=== PATIENT | male | born 1945 | race Caucasian/White ===

== ENCOUNTER 2021-10-26 05:41 | Day surgery (SDC) | payer BC ==
[2021-10-21 09:36] LABS: BASOPHILS % (AUTO) 0.8 % (0-1); EOSINOPHILS # (AUTO) 0.1 X10'3 (0-0.9); EOSINOPHILS % (AUTO) 2.7 % (0-6); LYMPHOCYTES # (AUTO) 1.2 X10'3 (1.1-4.8); LYMPHOCYTES % (AUTO) 21.7 % (21-51); MEAN CORPUSCULAR HGB CONC 33.6 g/dL (33.0-36.5); MEAN CORPUSCULAR VOLUME 89.5 FL (78-98); MEAN PLATELET VOLUME 7.7 FL (7.4-10.4); MONOCYTES # (AUTO) 0.6 X10'3 (0-0.9); MONOCYTES % (AUTO) 11.9 % (2-12); NEUTROPHILS # (AUTO) 3.3 X10'3 (1.8-7.7); NEUTROPHILS % (AUTO) 62.9 % (42-75); PRE OP HEMATOCRIT 42.5 % (42.0-52.0); PRE OP HEMOGLOBIN 14.3 g/dL (14.0-17.9); PRE OP PLATELET COUNT 172 X10'3 (140-440); RED BLOOD COUNT 4.74 X10'6 (4.70-6.10); RED CELL DISTRIBUTION WIDTH 15.3 % (11.5-14.5)
[2021-10-21 10:00] LABS: ALBUMIN/GLOBULIN RATIO 1.1 (1.1-1.5); ALKALINE PHOSPHATASE 54 IU/L (46-116); BLOOD UREA NITROGEN 17 MG/DL (7-18); CALCIUM 8.8 MG/DL (8.5-10.1); CHLORIDE 101 MMOL/L (99-107); CREATININE 1.13 MG/DL (0.60-1.10); PRE OP ALT 18 U/L (30-65); PRE OP ANION GAP 10 (8-16); PRE OP AST 15 U/L (10-37); PRE OP BILIRUB, TOTAL 0.4 MG/DL (0.0-1.0); PRE OP GLUCOSE 134 MG/DL (70-104); PRE OP POTASSIUM 4.4 MMOL/L (3.4-5.1); PRE OP SODIUM 138 MMOL/L (135-145); TOTAL CARBON DIOXIDE 26.8 MMOL/L (24-32); TOTAL PROTEIN 7.7 G/DL (6.4-8.2); eGFR 63 ML/MIN
[2021-10-26] VITALS (11 sets, daily range): BP systolic 132–174; BP diastolic 72–103
[~2021-10-26] VITALS: Ht 172.7 cm; Wt 87.0 kg
[~2021-10-26 05:41] MED LIST: ATOR40TA72 PO; CELE-85 PO; ESCI-8 PO; FLO0.4C PO; HYDR-3972 PO; LOSA25TA41 PO; METF-438 PO; PANT40TA54 PO; PIOG45TA64 PO; ceFAZolin inj. 2,000 MG in dextrose 5%-water 100 ML IV ONE; famotidine 20mg tablet PO ONE; ringers solution, lacted 1,000 ML IV SCH
[2021-10-26] MEDS ORDERED: LIDOcaine 1% (10mg/ml) 2ml vial ONE (06:00)
[2021-10-26] MEDS ORDERED: BUPIVAcaine/PF 2.5 mg/ml (0.25%) 30ml vial ONE (06:44)
[2021-10-26] MEDS ORDERED: LIDOcaine 1% 30ml preserv. free vial ONE (06:44)
[2021-10-26] MEDS ORDERED: propofol inj 20 ML IV ONE (07:17)
[2021-10-26] MEDS ORDERED: ondansetron/PF 4mg/2ml inj ONE (07:17)
[2021-10-26] MEDS ORDERED: LIDOcaine 1%/PF 5ML 10 MG/ML VIAL ONE (07:17)
[2021-10-26] MEDS ORDERED: neostigmine methylsulfate 1 MG/ML 10ml vial ONE (07:17)
[2021-10-26] MEDS ORDERED: glycopyrrolate 0.2mg/ml inj ONE (07:17)
[2021-10-26] MEDS ORDERED: rocuronium 10mg/ml inj IV ONE ×2 (07:17→08:47)
[2021-10-26] MEDS ORDERED: fentaNYL/PF 50MCG/1 ML 2ML syringe ONE ×2 (07:19)
[2021-10-26] MEDS ORDERED: midazolam 1 mg/ML 2ml injection ONE (07:19)
[2021-10-26] MEDS ORDERED: hydrALAZINE 20mg/ml inj. IV PRN (07:25)
[2021-10-26] MEDS ORDERED: ringers solution, lacted 1,000 ML IV SCH (07:25)
[2021-10-26] MEDS ORDERED: fentaNYL/PF 50MCG/1 ML 2ML syringe IV PRN (07:25)
[2021-10-26] MEDS ORDERED: morphine 4 MG/ML inj SYRINge IV PRN (07:25)
[2021-10-26] MEDS ORDERED: morphine 2 MG/ML inj. syringe IV PRN (07:25)
[2021-10-26] MEDS ORDERED: ondansetron/PF 4mg/2ml inj IV PRN (07:25)
[2021-10-26] MEDS ORDERED: labetalol 20mg/4ml (5mg/ml) syringe IV PRN (07:25)
[2021-10-26] MEDS ORDERED: labetalol 20mg/4ml (5mg/ml) syringe IV ONE (07:43)
[2021-10-26] MEDS ORDERED: sevoflurane 250ml liquid IH ONE (07:43)
--- NOTE | 2021-10-26 09:25 | NUR ---
Received from OR via , accompanied by Anesthesiologist DR STEVENS and report given by Anesthesiolgist. PT MOANING WITH PAIN, FENTANLY GIVE, MOVING EXT X 4, SKIN WARM AND PINK, PIV RIGHT HAND 20G WITH LR 100ML/HR, 3 BA'S ON ABD, VSS
[2021-10-26] MEDS: fentaNYL/PF 50MCG/1 ML 2ML syringe IV PRN ×2 (09:29→09:42)
[2021-10-26] MEDS ORDERED: oxyCODONE/APAP 5-325mg tablet PO PRN (09:40)
--- NOTE | 2021-10-26 10:40 | NUR ---
Report called to receiving nurse. Belongings [WEARING GLASSES. GALLARDO'S WITH ]. PT HAS VOIDED 400MLS CLEAR YELLOW URINE, BLADDER SCANNED PT DUE TO FEELING LIKE HE STILL HAD TO VOID AND HISTORY OF BPH. BLADDER SCAN WAS 20MLS, VSS, BA'S CD, IV REMOVED, PT MEETS DISCHARGE CRITERA. TOOK PATIENT TO CAR VIA W/C. PT STATED THANK YOU AND THAT ALL THE STAFF WAS SO SWEET TO HIM.
== END 2021-10-26 11:40 | disposition home or self-care (01) ==
LOC: PAS 05:41
PROVIDERS: ATTEND Surgery
DX: K40.20 Bilateral inguinal hernia, without obstruction or gangrene, not specified as recurrent (principal); I10 Essential (primary) hypertension; Z88.2 Allergy status to sulfonamides; F32.9 Major depressive disorder, single episode, unspecified; K21.9 Gastro-esophageal reflux disease without esophagitis; Z79.899 Other long term (current) drug therapy; Z98.890 Other specified postprocedural states; Z87.891 Personal history of nicotine dependence; Z85.828 Personal history of other malignant neoplasm of skin; K66.0 Peritoneal adhesions (postprocedural) (postinfection); G89.29 Other chronic pain; Z88.8 Allergy status to other drugs, medicaments and biological substances
CPT/HCPCS: 36415; 49650; 80053; 82948; 85025; 87811; C1781; J0690; J2250; J2270; J2405; J2704; J2710; J3010; J3490; J7030; J7060; J7120; Z7506; Z7508; Z7512; A4215; A4618

== ENCOUNTER 2024-02-12 11:07 | Day surgery (SDC) | payer BC ==
[2024-02-07 11:42] LABS: BASOPHILS % (AUTO) 0.4 % (0-1); EOSINOPHILS # (AUTO) 0.1 X10'3 (0-0.9); EOSINOPHILS % (AUTO) 1.1 % (0-6); HEMOGLOBIN 13.9 g/dl (14.0-17.9); LYMPHOCYTES # (AUTO) 1.1 X10'3 (1.1-4.8); MEAN CORPUSCULAR HGB CONC 33.2 g/dL (33.0-36.5); MEAN CORPUSCULAR VOLUME 90.4 FL (78-98); MEAN PLATELET VOLUME 8.2 FL (7.4-10.4); MONOCYTES % (AUTO) 14.5 % (2-12); NEUTROPHILS # (AUTO) 4.4 X10'3 (1.8-7.7); PLATELET COUNT 193 X10'3 (140-440); RED BLOOD COUNT 4.65 X10'6 (4.70-6.10); RED CELL DISTRIBUTION WIDTH 15.2 % (11.5-14.5); WHITE BLOOD COUNT 6.6 X10'3 (4.5-11.0)
[2024-02-07 11:55] LABS: APTT 29 SECONDS (22-32); PROTHROMBIN TIME 10.9 SECONDS (9.0-12.0)
[2024-02-07 12:00] LABS: ALBUMIN 3.8 G/DL (3.4-5.0); ANION GAP 11 (8-16); BLOOD UREA NITROGEN 22 MG/DL (7-18); BUN/CREATININE RATIO 21.6 (10.0-20.0); CALCIUM 9.5 MG/DL (8.5-10.1); CHLORIDE 104 MMOL/L (99-107); CHOL/HDL RATIO 2.1 (0.00-4.99); CHOLESTEROL 107 MG/DL (0-200); CREATININE 1.02 MG/DL (0.60-1.10); GLUCOSE 137 MG/DL (70-104); HDL CHOLESTEROL 52 MG/DL (35-60); LDL CHOLESTEROL 44 MG/DL (50-100); POTASSIUM 4.2 MMOL/L (3.5-5.1); SODIUM 140 MMOL/L (135-145); TOTAL CARBON DIOXIDE 25.3 MMOL/L (24-32); TRIGLYCERIDES 65 MG/DL (20-135); eGFR 70 ML/MIN
[2024-02-12] VITALS (8 sets, daily range): BP systolic 106–135; BP diastolic 69–81; PULSE 76–87; RESP 16; TEMP 98.1; O2SAT 97–99
[~2024-02-12] VITALS: Ht 172.7 cm; Wt 85.5 kg
[~2024-02-12 11:07] MED LIST changes: +CELE-127 PO; -CELE-85 PO; -ceFAZolin inj. 2,000 MG in dextrose 5%-water 100 ML IV ONE; -famotidine 20mg tablet PO ONE; -ringers solution, lacted 1,000 ML IV SCH
[2024-02-12] MEDS ORDERED: ALBU10.7 IJ (12:42)
[2024-02-12] MEDS ORDERED: OMEG100037 PO (12:42)
[2024-02-12] MEDS ORDERED: AMLO5TAB16 PO (12:42)
[2024-02-12] MEDS: diphenhydrAMINE 25mg capsule PO PRN (12:52)
[2024-02-12] MEDS: normal saline 1,000 ML IV SCH (12:52)
[2024-02-12] MEDS: LORazepam 0.5 MG tablet PO PRN (12:52)
[2024-02-12] MEDS ORDERED: LIDOcaine 1% (10mg/ml) 2ml vial ONE (13:54)
[2024-02-12] MEDS ORDERED: heparin 1,000unit/ml 10ml vial 10 ML ONE (13:54)
[2024-02-12] MEDS ORDERED: fentaNYL/PF 50MCG/1 ML 2ML syringe ONE (13:54)
[2024-02-12] MEDS ORDERED: midazolam 1 mg/ML 2ml injection ONE (13:54)
[2024-02-12] MEDS ORDERED: verapamil 2.5 mg/ml inj IV ONE (13:54)
[2024-02-12] MEDS ORDERED: iohexol 350MG/ML 100ml bottle IV ONE (13:55)
[2024-02-12] MEDS ORDERED: nitroGLYCERIN 500mcg/5mL D5W 5 ML IV ONE (13:56)
[2024-02-12] MEDS ORDERED: heparin 1,000 UNITS/NS 500ml 500 ML ONE (14:00)
[2024-02-12] MEDS ORDERED: iohexol 350 MG/ML 50ML vial IV ONE (15:21)
[2024-02-12 15:42] LABS: ISTAT HGB ART 12.9 g/dl (14.0-17.9); ISTAT Hct ART 38 %PCV (42-52); ISTAT O2 SATURATION ARTERIAL 94 % (95-98); ISTAT SOURCE ART
[2024-02-12] MEDS ORDERED: LORazepam 0.5 MG tablet PO PRN (16:20)
[2024-02-12] MEDS ORDERED: HYDROcodone/acetaminophen 10/325mg tab PO PRN (16:45)
[2024-02-12] MEDS ORDERED: HYDROcodone/acetaminophen 5mg/325mg tablet PO PRN (16:45)
[2024-02-13 07:39] LABS: ISTAT HGB MIX 12.6 g/dl (14.0-17.9); ISTAT Hct MIX 37 %PCV (42-52); ISTAT O2 SATURATION MIX VENOUS 65 % (60-80); ISTAT SOURCE VEN
== END 2024-02-12 18:00 | disposition home or self-care (01) ==
LOC: SSTAY O 11:07
PROVIDERS: ATTEND Internal Medicine Interventional Cardiology
DX: I25.10 Atherosclerotic heart disease of native coronary artery without angina pectoris (principal); E78.5 Hyperlipidemia, unspecified; I35.0 Nonrheumatic aortic (valve) stenosis; Z79.01 Long term (current) use of anticoagulants; I10 Essential (primary) hypertension; E11.9 Type 2 diabetes mellitus without complications; G47.33 Obstructive sleep apnea (adult) (pediatric); Z79.899 Other long term (current) drug therapy; Z98.890 Other specified postprocedural states
CPT/HCPCS: 36415; 80048; 80061; 82803; 82948; 85014; 85025; 85610; 85730; 92978; 93005; 93460; 99152; 99153; J1644; J2003; J2250; J3010; J3490; J7030; Q0163; Q9967; 92979; A6258; A6402; C1751; C1753; C1887; C1894

== ENCOUNTER 2024-03-20 09:50 | Emergency (ER) | payer BC ==
[~2024-03-20] VITALS: Ht 172.7 cm; Wt 85.2 kg
[~2024-03-20 09:50] MED LIST changes: +ALBU10.7 IJ; +AMLO5TAB16 PO; -CELE-127 PO; -ESCI-8 PO; -FLO0.4C PO; +OMEG100037 PO
[2024-03-20 10:29] LABS: BASOPHILS % (AUTO) 0.5 % (0-1); EOSINOPHILS # (AUTO) 0.1 X10'3 (0-0.9); EOSINOPHILS % (AUTO) 1.2 % (0-6); HEMATOCRIT 41.5 % (42.0-52.0); LYMPHOCYTES # (AUTO) 1.3 X10'3 (1.1-4.8); LYMPHOCYTES % (AUTO) 13.1 % (21-51); MEAN CORPUSCULAR HEMOGLOBIN 30.1 PG (27.0-31.0); MEAN CORPUSCULAR HGB CONC 33.8 g/dL (33.0-36.5); MEAN PLATELET VOLUME 7.5 FL (7.4-10.4); MONOCYTES # (AUTO) 1.1 X10'3 (0-0.9); MONOCYTES % (AUTO) 10.4 % (2-12); NEUTROPHILS # (AUTO) 7.7 X10'3 (1.8-7.7); NEUTROPHILS % (AUTO) 74.8 % (42-75); PLATELET COUNT 237 X10'3 (140-440); RED BLOOD COUNT 4.66 X10'6 (4.70-6.10); RED CELL DISTRIBUTION WIDTH 14.6 % (11.5-14.5); WHITE BLOOD COUNT 10.3 X10'3 (4.5-11.0)
[2024-03-20 10:41] VITALS: TEMP 98.4
[2024-03-20 10:53] LABS: ALANINE AMINOTRANSFERASE 19 U/L (12-78); ALBUMIN 3.6 G/DL (3.4-5.0); ALBUMIN/GLOBULIN RATIO 0.9 (1.1-1.5); ALKALINE PHOSPHATASE 67 IU/L (46-116); ANION GAP 10 (8-16); ASPARTATE AMINO TRANSFERASE 7 U/L (10-37); BILIRUBIN,TOTAL 0.4 MG/DL (0.1-1.0); BLOOD UREA NITROGEN 21 MG/DL (7-18); BUN/CREATININE RATIO 16.5 (10.0-20.0); CALCIUM 9.5 MG/DL (8.5-10.1); CHLORIDE 102 MMOL/L (99-107); CREATININE 1.27 MG/DL (0.60-1.10); GLUCOSE 191 MG/DL (70-104); POTASSIUM 4.4 MMOL/L (3.5-5.1); SODIUM 137 MMOL/L (135-145); TOTAL CARBON DIOXIDE 25.3 MMOL/L (24-32); TOTAL PROTEIN 7.8 G/DL (6.4-8.2); eCRCL 44 ML/MIN; eGFR 54 ML/MIN
[2024-03-20 11:02] LABS: PRO BRAIN NATRIURETIC PEPTIDE 219 PG/ML (0-450)
[2024-03-20 12:08] VITALS: BP 119/61; PULSE 68; RESP 16; O2SAT 96
== END 2024-03-20 12:16 | disposition home or self-care (01) ==
LOC: ER 09:50
DX: E11.9 Type 2 diabetes mellitus without complications (principal); J06.9 Acute upper respiratory infection, unspecified; B97.89 Other viral agents as the cause of diseases classified elsewhere; I25.10 Atherosclerotic heart disease of native coronary artery without angina pectoris; Z88.2 Allergy status to sulfonamides; Z88.1 Allergy status to other antibiotic agents; Z88.5 Allergy status to narcotic agent; Z79.84 Long term (current) use of oral hypoglycemic drugs; Z79.899 Other long term (current) drug therapy; Z20.822 Contact with and (suspected) exposure to COVID-19
CPT/HCPCS: 36415; 71045; 80053; 83880; 84484; 85025; 87502; 87503; 87811; 93005; 99285